=== PATIENT | male | born 1940 | race Caucasian/White ===

== ENCOUNTER 2021-10-15 21:27 | Emergency (ER) | payer MEDICARE, OTHER, SELFPAY | END 2021-10-15 21:57 | DX: Z53.21 Procedure and treatment not carried out due to patient leaving prior to being seen by health care provider (principal) ==

== ENCOUNTER 2022-07-14 15:48 | Emergency (ER) | payer MEDICARE, SELFPAY ==
[2022-07-14] VITALS (42 sets, daily range): BP systolic 136–212; BP diastolic 70–175; PULSE 70–100; RESP 9–27; TEMP 37.1; O2SAT 98
--- NOTE | 2022-07-14 17:30 | RT.EKG_ITS ---
APPROVED REPORT Exam: Resting ECG Reason for Exam: nausea Patient Location: E HR:66 bpm ECG Measurements Heart Rate 66 AXIS KS 199 P 40 QRSd 92 QRS 24 QT 403 T 31 QTc 424 Conclusion Sinus rhythm...normal P axis, V-rate 60- 99 Sinus. Normal axis. No STEMI. I have reviewed and interpreted ECG and agree with software generated interpretation.
--- NOTE | 2022-07-14 18:00 | W.ED.GENAD ---
Discharge Plan Disposition Patient Disposition: Home Condition: Improving Discharge Details Clinical Impression: Nausea, Abdominal pain, Dizziness ED Provider: Francine Ross Home Meds and New Rx's Prescriptions: Continued multivitamin 1 EACH tablet 1 ea PO Discharge Instructions Instructions: Acute Nausea and Vomiting (ED), Abdominal Pain (ED), Dizziness (ED) Additional Instructions: Your blood tests and imaging today are reassuring and show no evidence of acute concerning findings. Drink plenty of fluids and get plenty of rest. Take the Zofran as needed and directed for nausea and vomiting. You have been placed on care management's list to arrange for a follow-up appointment with a primary care doctor to establish care and for reevaluation. You were given general surgery follow-up information for reevaluation of your chronic abdominal pain and ongoing gastrointestinal issues. Return immediately to the emergency department if you develop any worsening or new concerning symptoms. Referrals: Eze Torrez MD [ [facility] STAFF PHYSICIAN] - Discharge Data Discharge Date/Time-TO BE ENTERED AT DEPARTURE: 07/14/22 22:07 Discharge Physician: Francine Ross Medical Decision Making [id number] -- 81-year-old male with a history of diverticulitis with bowel resection, hernia repair and BPH presents with nausea, dizziness and left lower quadrant abdominal pain since last night after eating tacos. EKG on arrival noted a rate of 66, sinus, normal axis no acute ischemic findings. Patient appears generally comfortable and nontoxic. His vitals are reassuring. His abdomen is soft but he does have tenderness in the left lower quadrant. He has no chest pain, shortness of breath or palpitations to suggest ACS or PE. He has no rigidity, guarding, peritoneal signs or pulsatile mass to suggest AAA or dissection. Differential diagnosis includes diverticulitis, colitis, UTI, kidney stone. Will obtain screening labs, CT abdomen and pelvis, urinalysis and fluid and provide fluid bolus, IV Tylenol, IV Zofran and reassess. Labs and imaging reviewed. Normal white blood cell count. Troponin within normal limits. Urinalysis negative. FLUVID negative. CT abdomen and pelvis notes: IMPRESSION: 1. Prostatomegaly with small nodular protrusion from the dome of the prostate into the bladder lumen.? This may represent benign prostatic hypertrophy, but prostate neoplasm can not be excluded.? Correlation PSA recommended 2.? Significant chronic osseous and atherosclerotic changes 3.? Distal colonic diverticulosis without evidence of diverticulitis or other acute bowel pathology 2129 -- patient reassessed and he feels much better. He denies any nausea, pain or dizziness at this time. Patient requested to establish care with a PCP in this area. Patient was given general surgery follow-up information. He was given Zofran bottle to go. Usual and customary return precautions given prior to discharge. Medical Records Medical records reviewed: Yes I reviewed the patient's medical records. Imaging Data Radiologic Study: Radiologist's impression: CT Abdomen And Pelvis With Contrast Exam date and time: 07/14/2022 7:20 PM Age: 81 years old Clinical indication: Other: Llq abd pain, nausea, h/o bowel resection; Prior surgery; Surgery date: 6+ months TECHNIQUE: Imaging protocol: Computed tomography of the abdomen and pelvis with contrast. Contrast material: OMNIPAQUE 350; Contrast volume: 100 ml; Contrast route: INTRAVENOUS (IV);? COMPARISON: No relevant prior studies available. FINDINGS: Diaphragm: Small hiatal hernia. Moderate-sized hiatal hernia. Liver: Normal. No mass. Gallbladder and bile ducts: Normal. No calcified stones. No ductal dilation. Pancreas: Normal. No ductal dilation. Spleen: Normal. No splenomegaly. Adrenal glands: Normal. No mass. Kidneys and ureters: Normal. No hydronephrosis. Stomach and bowel: There is moderate sigmoid diverticulosis without evidence of diverticulitis. No evidence of bowel obstruction. Appendix: No evidence of appendicitis. Intraperitoneal space: Unremarkable. No free air. No significant fluid collection. Vasculature: Moderate atherosclerotic calcification noted in the aorta. No evidence of aortic aneurysm or dissection. Lymph nodes: Unremarkable. No enlarged lymph nodes. Urinary bladder:? Unremarkable Reproductive: Prostate gland is mildly enlarged. There is a 1.8 cm nodular protrusion from the dome of the prostate into the urinary bladder lumen, best seen on the sagittal sequence. Bones/joints: There is severe bilateral facet arthropathy of the lumbosacral junction with grade 1 anterolisthesis of L5. Severe multilevel degenerative disc changes noted throughout the lower spine. No vertebral body compression or acute fracture. Soft tissues: Unremarkable. IMPRESSION: 1. Prostatomegaly with small nodular protrusion from the dome of the prostate into the bladder lumen.? This may represent benign prostatic hypertrophy, but prostate neoplasm can not be excluded.? Correlation PSA recommended 2.? Significant chronic osseous and atherosclerotic changes 3.? Distal colonic diverticulosis without evidence of diverticulitis or other acute bowel pathology Lab Data Lab results reviewed: Yes I reviewed the patient's lab results. Labs: Laboratory Tests Range/Units 07/14/22 07/14/22 07/14/22 17:46 17:55 18:02 WBC (4.4-10.8) 10^3/uL RBC (4.36-5.78) 10^6/uL Hgb (13.5-17.5) g/dL Hct (40.0-50.0) % MCV (80-95) fL MCH (27.0-33.0) pg MCHC (32.0-36.0) % RDW (11.8-14.1) % Plt Count (130-400) 10^3/uL MPV (8.0-11.0) fL Immature Gran % Neutrophils % Lymphocytes % Monocytes % Eosinophils % Basophils % Nucleated RBC % (0.0-0.3) % Absolute Neutrophils (1.2-6.7) 10^3/uL Absolute Lymphocytes (1.2-3.4) 10^3/uL Absolute Monocytes (0.1-0.8) 10^3/uL Absolute Eosinophils (0.0-0.7) 10^3/uL Absolute Basophils (0.0-0.2) 10^3/uL Sodium (136-145) mmol/L 135 L Potassium (3.5-5.1) mmol/L 4.2 Chloride (98-107) mmol/L 97 L Carbon Dioxide (21.0-32.0) mmol/L 32.3 H Anion Gap (3-11) mmol/L 5.7 BUN (7-18) mg/dL 12 Creatinine (0.70-1.30) mg/dL 0.9 Est GFR (CKD-EPI 2020) (mL/min/1.73m2) 85.80 Glucose (74-106) mg/dL 138 H Calcium (8.5-10.1) mg/dL 10.2 H Magnesium (1.8-2.4) mg/dL 2.6 H Total Bilirubin (0.2-1.0) mg/dL 0.7 AST (15-37) U/L 36 ALT (16-63) U/L 30 Alkaline Phosphatase (46-116) U/L 104 Troponin I (<or=60) ng/L < 50 Total Protein (6.4-8.2) g/dL 7.4 Albumin (3.4-5.0) g/dL 3.9 Urine Color (Yellow) Yellow Urine Clarity (Clear) Clear Urine pH (5-8) 7.0 Ur Specific [place] (1.005-1.025) 1.025 Urine Protein (Negative) mg/dL Negative Urine Ketones (Negative) mg/dL Negative Urine Blood (Negative) Negative Urine Nitrite (Negative) Negative Urine Bilirubin (Negative) Negative Urine Urobilinogen (Up to 0.2) mg/dL 0.2 Ur Leukocyte Esterase (Negative) Negative Urine Glucose (Negative) mg/dL Negative COVID-19 Source Nasopharynx SARS-CoV-2 (PCR) (Negative) Negative Influenza Type A (PCR) (Negative) Negative Influenza Type B (PCR) (Negative) Negative RSV (PCR) (Negative) Negative Range/Units 07/14/22 18:02 WBC (4.4-10.8) 10^3/uL 8.74 RBC (4.36-5.78) 10^6/uL 4.41 Hgb (13.5-17.5) g/dL 14.4 Hct (40.0-50.0) % 41.3 MCV (80-95) fL 94 MCH (27.0-33.0) pg 32.7 MCHC (32.0-36.0) % 34.9 RDW (11.8-14.1) % 11.1 L Plt Count (130-400) 10^3/uL 308 MPV (8.0-11.0) fL 8.6 Immature Gran % 0.2 Neutrophils % 78.6 Lymphocytes % 12.8 Monocytes % 7.7 Eosinophils % 0.2 Basophils % 0.5 Nucleated RBC % (0.0-0.3) % 0.0 Absolute Neutrophils (1.2-6.7) 10^3/uL 6.87 H Absolute Lymphocytes (1.2-3.4) 10^3/uL 1.12 L Absolute Monocytes (0.1-0.8) 10^3/uL 0.67 Absolute Eosinophils (0.0-0.7) 10^3/uL 0.02 Absolute Basophils (0.0-0.2) 10^3/uL 0.04 Sodium (136-145) mmol/L Potassium (3.5-5.1) mmol/L Chloride (98-107) mmol/L Carbon Dioxide (21.0-32.0) mmol/L Anion Gap (3-11) mmol/L BUN (7-18) mg/dL Creatinine (0.70-1.30) mg/dL Est GFR (CKD-EPI 2020) (mL/min/1.73m2) Glucose (74-106) mg/dL Calcium (8.5-10.1) mg/dL Magnesium (1.8-2.4) mg/dL Total Bilirubin (0.2-1.0) mg/dL AST (15-37) U/L ALT (16-63) U/L Alkaline Phosphatase (46-116) U/L Troponin I (<or=60) ng/L Total Protein (6.4-8.2) g/dL Albumin (3.4-5.0) g/dL Urine Color (Yellow) Urine Clarity (Clear) Urine pH (5-8) Ur Specific [place] (1.005-1.025) Urine Protein (Negative) mg/dL Urine Ketones (Negative) mg/dL Urine Blood (Negative) Urine Nitrite (Negative) Urine Bilirubin (Negative) Urine Urobilinogen (Up to 0.2) mg/dL Ur Leukocyte Esterase (Negative) Urine Glucose (Negative) mg/dL COVID-19 Source SARS-CoV-2 (PCR) (Negative) Influenza Type A (PCR) (Negative) Influenza Type B (PCR) (Negative) RSV (PCR) (Negative) ECG Data Attestation: I personally reviewed and interpreted this ECG (s) as follows: Interpretation: Rate of 66, sinus, normal axis, normal intervals, no STEMI. HPI General Mode of arrival: ambulatory. Date/Time Provider Initiated Documentation: 07/14/22 15:51. Limitations to Documentation: no limitations. Information obtained by: patient. HPI Narrative: Patient is an 81-year-old male with a history of diverticulitis with bowel resection in 2016, BPH and hernia repair presents with nausea, left lower quadrant abdominal pain and dizziness since last night after eating tacos. Patient reports he was visiting family in [place] and ate 1 taco which is unusual for him. He states a few hours later he developed nausea and left lower quadrant discomfort. Daughter states she drove patient home and when getting out of the car he complained of dizziness which he described as a spinning sensation. She reports she gave him meclizine last night but has not given any medication for pain. Patient endorses that his pain feels more like a discomfort and is occasionally sharp or achy. He states the pain is currently 6/10. He admits to nausea but denies any vomiting. He does report that he had a normal bowel movement last night and reports it was formed and brown but with small bits of stool mixed in. He denies any fever, chest pain, difficulty breathing, urinary symptoms, hematochezia, melena. He denies any recent antibiotics. Patient does endorse that he has had ongoing left lower quadrant abdominal pain since his bowel resection 7 years ago that mainly occurs when he eats any solid food. He states he has a process which he goes through if he eats any solid food and develops pain in which he has to hold the skin and muscle of his lower abdomen away from his body. He reports this helps resolve the pain and helps with his bowel movements. He reports he has had surgery in [facility] and [facility] and does not want to return there as he lives near here. He states he would like to find a primary care doctor and surgeon here. Related Data Home Medications Medication Instructions Recorded Confirmed multivitamin 1 ea PO 04/07/14 Allergies Allergy/AdvReac Type Severity Reaction Status Date / Time Tetracyclines Allergy Unknown Unverified 04/07/14 13:43 clindamycin Allergy Unverified 08/28/15 08:45 doxycycline Allergy Unverified 08/28/15 08:45 General Stated Complaint: Nausea/Vomit/Diar BUDDY: 3 Review of Systems All systems reviewed & are unremarkable except as noted in HPI and below Constitutional Constitutional: Reports as per HPI, Denies chills and Denies fever(s) Eyes Eyes: Denies blurry vision ENT Ears, Nose, Mouth, and Throat: Denies dizziness, Denies sore throat and Denies throat swelling Cardiovascular Cardiovascular: Denies chest pain and Denies dyspnea Respiratory Respiratory: Denies cough and Denies dyspnea Gastrointestinal Gastrointestinal: Reports abdominal pain, Denies diarrhea, Reports nausea and Denies vomiting Genitourinary Genitourinary: Denies hematuria and Denies dysuria Musculoskeletal Musculoskeletal: Denies back pain and Denies numbness Integumentary/Breasts Skin/Breast: Denies lesions and Denies rash Neurologic Neurologic: Denies dizziness, Denies localized weakness and Denies numbness Allergic/Immunologic Allergic/Immunologic: Denies throat swelling PFSH All Active Problems (Updated 07/14/22 @ 21:50 by Francine Ross DO) Nausea (Acute) Abdominal pain (Acute) Dizziness (Acute) Medical History (Updated 07/14/22 @ 21:50 by Francine Ross DO) Allergic rhinitis BPH (benign prostatic hyperplasia) Diverticulosis Surgical History (Updated 04/07/14 @ 17:47 by Navin Merchant DO) Colonoscopy - MAC Hernia Repair, Incisional Social History Smoking/Tobacco Use Status: Never Smoking risk assessment performed?: Yes Do you feel safe at home: Yes Do you feel safe in your relationship?: Yes Exam Const General: cooperative, healthy appearing and no acute distress Orientation: alert, awake and oriented x3 HENMT Head: normal to inspection Face and sinus: normal facial exam Eyes General: appearance normal, both eyes and all related structures Pupils: PERRL EOM: EOM intact bilaterally Neck Neck: normal visual inspection and No submandibular swelling Lymphatic: no lymphadenopathy noted Chest Chest: normal inspection of the chest and no tenderness Resp Effort & Inspection: normal respiratory effort and able to speak in complete sentences Auscultation: clear to auscultation bilaterally Cardio Rate: regular rate Rhythm: regular rhythm GI Inspection: normal to inspection Palpation: soft, not firm, not rigid and tender in the LLQ Auscultation: hypoactive bowel sounds Male General Exam: Yes normal external exam Testes: normal, no testicular swelling and no testicular tenderness Skin General skin exam: no rashes or lesions noted Neuro General: patient alert, patient awake and patient oriented x3 Cognition: normal cognition Speech: speech normal Motor: muscle tone normal throughout Sensory Exam: no sensory deficits noted Extrem General: normal to inspection, full ROM, capillary refill normal, no calf tenderness bilaterally and no edema Psych Appearance: grossly normal Mental Status: mental status grossly normal Speech and Movement: speech and movement normal Affect: normal affect Course Vital Signs Vital signs: Vital Signs Temperature 98.8 F 07/14/22 16:03 Pulse 70 07/14/22 16:03 Respiratory Rate 18 07/14/22 16:03 Blood Pressure 136/115 H 07/14/22 16:03 Pulse Oximetry 98 07/14/22 16:03 Temperature 98.8 F 07/14/22 16:03 Temperature Source Skin 07/14/22 16:03 Pulse 70 07/14/22 16:03 Respiratory Rate 18 07/14/22 16:03 Blood Pressure 136/115 H 07/14/22 16:03 Blood Pressure Position Sitting 07/14/22 16:03 Pulse Oximetry 98 07/14/22 16:03 Oxygen Delivery Method Room Air 07/14/22 16:03 Oxygen Flow Rate 0 07/14/22 16:03
[2022-07-14 18:11] LABS: Abs Immature Grans 0.02 10^3/uL (0.0-0.06); Absolute Basophil Count 0.04 10^3/uL (0.0-0.2); Absolute Eosinophil Count 0.02 10^3/uL (0.0-0.7); Absolute Lymphocyte Count 1.12 10^3/uL (1.2-3.4); Absolute Monocyte Count 0.67 10^3/uL (0.1-0.8); Absolute Neutrophil Count 6.87 10^3/uL (1.2-6.7); Basophils % 0.5; Eosinophils % 0.2; HCT 41.3 % (40.0-50.0); HGB 14.4 g/dL (13.5-17.5); Immature Grans % 0.2; Lymphocytes % 12.8; MCH 32.7 pg (27.0-33.0); MCHC 34.9 % (32.0-36.0); MCV 94 fL (80-95); MPV 8.6 fL (8.0-11.0); Monocytes % 7.7; Neutrophils % 78.6; Platelet Count 308 10^3/uL (130-400); RBC 4.41 10^6/uL (4.36-5.78); RDW 11.1 % (11.8-14.1); RDW-SD 38.5 fL; WBC 8.74 10^3/uL (4.4-10.8)
[2022-07-14 18:28] LABS: Clarity Clear (Clear); Glucose Negative (Negative); Ketones Negative (Negative); Leukocyte Esterase Negative (Negative); Nitrite Negative (Negative); Specific Gravity 1.025 (1.005-1.025)
[2022-07-14 18:29] LABS: Bilirubin Negative (Negative); Blood Negative (Negative); Urobilinogen 0.2 mg/dL (Up to 0.2)
[2022-07-14 18:30] LABS: ALT 30 U/L (16-63); AST 36 U/L (15-37); Albumin 3.9 g/dL (3.4-5.0); Alkaline Phosphatase 104 U/L (46-116); Anion Gap 5.7 mmol/L (3-11); BUN 12 mg/dL (7-18); Bilirubin, Total 0.7 mg/dL (0.2-1.0); CO2 32.3 mmol/L (21.0-32.0); CREATININE 0.9 mg/dL (0.70-1.30); Calcium 10.2 mg/dL (8.5-10.1); Chloride 97 mmol/L (98-107); Glucose 138 mg/dL (74-106); Magnesium 2.6 mg/dL (1.8-2.4); Potassium 4.2 mmol/L (3.5-5.1); Sodium 135 mmol/L (136-145); Total Protein 7.4 g/dL (6.4-8.2); Troponin I < 50 ng/L (<or=60)
--- NOTE | 2022-07-14 18:30 | DI.CT_ITS ---
Exam(s) CT ABDOMEN PELVIS W EXAM: CT ABDOMEN PELVIS W CLINICAL HISTORY: LLQ abd pain, nausea, h/o bowel resection. TECHNIQUE: Imaging Protocol: Axial computed tomography images with coronal and sagittal reformatted images were created and reviewed CONTRAST MATERIAL: Intravenous: Omnipaque-350 100cc Oral: None COMPARISON: No exams were available for comparison FINDINGS: VISUALIZED LUNG BASES: No nodules nor pleural effusions evident. ABDOMEN: There is no ascites. However, there is diffuse haziness of the anterior mesentery noted. No distinc t fluid collection. No evidence of abnormal lymphadenopathy seen in the mesentery. LIVER: There are no focal hepatic lesions evident. No dilated intrahepatic ducts. GALLBLADDER/BILIARY: Unremarkable. CBD is not dilated. PANCREAS: There is an abnormal hypodensity in the superior aspect of the body of the pancreas measuri ng 1.4 x 1.0 cm. There are no other focal pancreatic lesions. Pancreatic duct is not dilated. SPLEEN: Spleen is not enlarged. No obvious intrasplenic lesions. Splenic and portal veins are paten t. ADRENALS: There are no significant adrenal masses. KIDNEYS:There is a small benign 9 x 9 mm cyst in the posterior cortex of the left kidney. Does not r equire further investigation. No other significant focal renal findings. No calculi. No solid mass es. No hydronephrosis.. ABDOMINAL AORTA: Upper normal diameter for age group. 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 LYMPH NODES:There is no retroperitoneal nor paraaortic adenopathy. ABDOMINAL WALL: No evidence of significant anterior abdominal wall nor inguinal hernia. GI: There is no evidence of bowel obstruction, free air, nor abscess. Small bowel loops and colon are fluid-filled PELVIS: GI: No evidence of appendicitis.Partial sigmoid resection. No free fluid nor abscess in this region. LYMPH NODES: There is no intrapelvic nor inguinal adenopathy. REPRODUCTIVE: Prostate gland is enlarged and mildly lobulated. Prostate measures 5.5 cm wide and 4.5 cm AP. URINARY BLADDER: Bladder is distended and thick walled. No diverticuli. No distinct bladder mass. No calculi seen in the bladder. OSSEOUS: No fractures and no significant osseous lesions. Chronic degenerative disc disease. Mild degenerative anterolisthesis L5 upon S1. IMPRESSION: 1. There appears to be evidence of prior partial sigmoid resection. No abscess at at this level. No free air. No evidence of diverticulitis. 2. Enlarged prostate gland and distended urinary bladder. Bladder wall is also uniformly thickened. There are no diverticuli. 3. There is a 1.4 x 1.0 cm hypodense lesion in the superior aspect of the pancreas at the junction of the body and tail, requiring further study with MRI. 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 Pancreatic duct is not dilated. There is no peripancreatic fluid. 4. Fluid-filled small and large bowel loops. No evidence of bowel obstruction. Mild haziness in the mesentery but without evidence of true ascites. First read by [facility] Final report called by myself to the ER physician 07/15/2022 10:55 a.m.. Pancreas finding and recomm endation discussed. RADIATION DOSE DELIVERED: 575.52mGy.cm Total DLP DATA REPOSITORY: All CT scans at this facility are submitted to the National Radiology Data Registry (NRDR) Dose Index Registry (DIR) with the [employer] (ACR). RADIATION OPTIMIZATION: All CT scans at this facility use at least one of these dose optimization te chniques: automated exposure control; mA and/or kV adjustment per patient size (includes targeted exa ms where dose is matched to clinical indication); or iterative reconstruction.
[2022-07-14 18:45] LABS: COVID-19 PCR Negative (Negative); Influenza A PCR Negative (Negative); Influenza B PCR Negative (Negative); RSV PCR Negative (Negative)
[2022-07-14] MEDS: Normal Saline 1,000 ML 1000 ML IV (18:45)
[2022-07-14] MEDS: ACETAMINOPHEN 1,000 MG/100 ML BTL 400 MG IVPB (18:45)
[2022-07-14] MEDS: Ondansetron 4 MG/2 ML VIAL IVP (18:45)
[2022-07-14 18:46] LABS: Source Nasopharynx
[2022-07-14] MEDS: Normal Saline - Diluent 50 ML VIAL IJ (19:24)
[2022-07-14] MEDS: Omnipaque 350 MG/ML 100 ML BTL IJ (19:25)
--- NOTE | 2022-07-14 20:01 | DI.VRAD_ITS ---
PROCEDURE INFORMATION: Exam: CT Abdomen And Pelvis With Contrast Exam date and time: 07/14/2022 7:20 PM Age: 81 years old Clinical indication: Other: Llq abd pain, nausea, h/o bowel resection; Prior surgery; Surgery date: 6+ months TECHNIQUE: Imaging protocol: Computed tomography of the abdomen and pelvis with contrast. Contrast material: OMNIPAQUE 350; Contrast volume: 100 ml; Contrast route: INTRAVENOUS (IV); COMPARISON: No relevant prior studies available. FINDINGS: Diaphragm: Small hiatal hernia. Moderate-sized hiatal hernia. Liver: Normal. No mass. Gallbladder and bile ducts: Normal. No calcified stones. No ductal dilation. Pancreas: Normal. No ductal dilation. Spleen: Normal. No splenomegaly. Adrenal glands: Normal. No mass. Kidneys and ureters: Normal. No hydronephrosis. Stomach and bowel: There is moderate sigmoid diverticulosis without evidence of diverticulitis. No evidence of bowel obstruction. Appendix: No evidence of appendicitis. Intraperitoneal space: Unremarkable. No free air. No significant fluid collection. Vasculature: Moderate atherosclerotic calcification noted in the aorta. No evidence of aortic aneurysm or dissection. Lymph nodes: Unremarkable. No enlarged lymph nodes. Urinary bladder: Unremarkable Reproductive: Prostate gland is mildly enlarged. There is a 1.8 cm nodular protrusion from the dome of the prostate into the urinary bladder lumen, best seen on the sagittal sequence. Bones/joints: There is severe bilateral facet arthropathy of the lumbosacral junction with grade 1 anterolisthesis of L5. Severe multilevel degenerative disc changes noted throughout the lower spine. No vertebral body compression or acute fracture. Soft tissues: Unremarkable. IMPRESSION: 1. Prostatomegaly with small nodular protrusion from the dome of the prostate into the bladder lumen. This may represent benign prostatic hypertrophy, but prostate neoplasm can not be excluded. Correlation PSA recommended 2. Significant chronic osseous and atherosclerotic changes 3. Distal colonic diverticulosis without evidence of diverticulitis or other acute bowel pathology Dictated and Authenticated by: Ulises Orozco MD. Ordering:FAUZIA Escamilla MD
--- NOTE | 2022-07-15 11:16 | ED.PROG_ITS ---
Date of service: 07/15/22 Time of Service: 11:17 Medical Decision Making Received a call from the radiologist , ? pancreatic lesion on CT scan - outpt MRI recommended this was d/w patient. Discharge Plan Disposition Patient Disposition: Home Condition: Improving Discharge Details Clinical Impression: Nausea, Abdominal pain, Dizziness Primary Care Provider: Unknown,Unknown ED Provider: Francine Ross Home Meds and New Rx's Prescriptions: Continued multivitamin 1 EACH tablet 1 ea PO Discharge Instructions Instructions: Acute Nausea and Vomiting (ED), Abdominal Pain (ED), Dizziness (ED) Additional Instructions: Your blood tests and imaging today are reassuring and show no evidence of acute concerning findings. Drink plenty of fluids and get plenty of rest. Take the Zofran as needed and directed for nausea and vomiting. You have been placed on care management's list to arrange for a follow-up appointment with a primary care doctor to establish care and for reevaluation. You were given general surgery follow-up information for reevaluation of your chronic abdominal pain and ongoing gastrointestinal issues. Return immediately to the emergency department if you develop any worsening or new concerning symptoms. Referrals: Eze Torrez MD [ [facility] STAFF PHYSICIAN] - Discharge Data Discharge Date/Time-TO BE ENTERED AT DEPARTURE: 07/14/22 22:07 Discharge Physician: Farncine Ross
== END 2022-07-14 22:07 | disposition home or self-care (01) ==
PROVIDERS: Emergency Provider Physician Assistant
DX: R11.0 Nausea (principal); R10.9 Unspecified abdominal pain; R42 Dizziness and giddiness; K57.30 Diverticulosis of large intestine without perforation or abscess without bleeding; R93.89 Abnormal findings on diagnostic imaging of other specified body structures
CPT/HCPCS: 80053; 87637; 93005; 96361; 96365; 96375; 99285; 74177; 81003; 83735; 84484; 85025; 93010; 99284; J0131; J2405; J3490

== ENCOUNTER 2023-03-23 17:36 | Outpatient (REF) | payer MEDICARE, SELFPAY ==
[2023-03-23 14:59] LABS: Abs Immature Grans 0.02 10^3/uL (0.0-0.06); Absolute Basophil Count 0.04 10^3/uL (0.0-0.2); Absolute Eosinophil Count 0.12 10^3/uL (0.0-0.7); Absolute Lymphocyte Count 0.83 10^3/uL (1.2-3.4); Absolute Monocyte Count 0.49 10^3/uL (0.1-0.8); Absolute Neutrophil Count 5.02 10^3/uL (1.2-6.7); Basophils % 0.6; Eosinophils % 1.8; HCT 40.5 % (40.0-50.0); HGB 13.8 g/dL (13.5-17.5); Immature Grans % 0.3; Lymphocytes % 12.7; MCH 32.5 pg (27.0-33.0); MCHC 34.1 % (32.0-36.0); MCV 95 fL (80-95); Monocytes % 7.5; Neutrophils % 77.1; Platelet Count 324 10^3/uL (130-400); RBC 4.25 10^6/uL (4.36-5.78); RDW 11.4 % (11.8-14.1); RDW-SD 39.8 fL; WBC 6.52 10^3/uL (4.4-10.8)
[2023-03-23 15:36] LABS: ALT 30 U/L (16-63); AST 29 U/L (15-37); Albumin 3.7 g/dL (3.4-5.0); Alkaline Phosphatase 128 U/L (46-116); Anion Gap 7.9 mmol/L (3-11); BUN 14 mg/dL (7-18); Bilirubin, Total 0.4 mg/dL (0.2-1.0); CO2 30.1 mmol/L (21.0-32.0); CREATININE 0.8 mg/dL (0.70-1.30); Calcium 9.4 mg/dL (8.5-10.1); Chloride 98 mmol/L (98-107); Estimated GFR 88.36 (mL/min/1.73m2); Glucose 126 mg/dL (74-106); Potassium 3.9 mmol/L (3.5-5.1); Sodium 136 mmol/L (136-145); Total Protein 7.4 g/dL (6.4-8.2)
== END 2023-03-23 17:37 | disposition home or self-care (01) ==
LOC: NCHCN 17:36
PROVIDERS: Visit Provider Family Medicine
DX: R19.7 Diarrhea, unspecified (principal)
CPT/HCPCS: 80053; 85025

== ENCOUNTER 2023-03-24 19:17 | Outpatient (REF) | payer MEDICARE, BC, SELFPAY ==
[2023-03-24 20:37] LABS: C Diff PCR Negative (Negative)
== END 2023-03-24 19:18 | disposition home or self-care (01) ==
LOC: NCHCN 19:17
PROVIDERS: Visit Provider Family Medicine
DX: R19.7 Diarrhea, unspecified (principal)
CPT/HCPCS: 87493; 83630

== ENCOUNTER → 2023-03-28 11:28 | Outpatient (CLI) | payer MEDICARE, SELFPAY ==
--- NOTE | 2023-03-28 | DI.RAD_ITS ---
Exam(s) XR ABDOMEN FLAT UPRIGHT EXAM: 2D digital imaging was performed. CLINICAL HISTORY: DIARRHEA,R19.7,H/O COLONOSCOPY. COMPARISON: No exams were available for comparison TECHNIQUE: Supine and uprightSupine and Lateral views of the abdomen were performed. FINDINGS: BOWEL GAS PATTERN: The transverse colon contains air and is mildly distended. No visible stool. Sma ll amount of gas is seen in the stomach. No small bowel distension. No free air. Suture material n oted in the pelvis. CALCIFICATIONS: No urinary tract calcifications. OSSEOUS STRUCTURES: Degenerative changes in the spine with prominent endplate osteophytes. Visualized portions of chest: Unremarkable. IMPRESSION: 1. Nonobstructive bowel gas pattern. Mild gaseous distension of the transverse colon. 2. No radiopaque calculi. 3. No free air. DATA REPOSITORY: RADIATION DOSE DELIVERED:
== END ==
PROVIDERS: Visit Provider Family Medicine
DX: R19.7 Diarrhea, unspecified (principal)
CPT/HCPCS: 74019